=== PATIENT | female | born 1970 | race Caucasian/White ===

== ENCOUNTER 2019-11-12 04:36 | Emergency (ER) | payer BC ==
[~2019-11-12] VITALS: Ht 162.6 cm; Wt 63.5 kg
[2019-11-12 04:50] VITALS: BP_SYST 117
[2019-11-12 05:11] VITALS: BP_SYST 117
== END 2019-11-12 05:11 | disposition home or self-care (01) ==
LOC: SED 04:36
DX: J20.9 Acute bronchitis, unspecified (principal)
CPT/HCPCS: 99283